=== PATIENT | female | born 1935 | race Native Hawaiian/Other Pacific Islander ===

== ENCOUNTER 2016-10-06 10:01 | Outpatient (CLI) | payer OTHER ==
[2016-10-06 10:32] LABS: POTASSIUM 4.1 mmol/L (3.6-5.2); SODIUM 139 mmol/L (136-145)
== END 2016-10-06 22:59 | disposition home or self-care (01) ==
LOC: LABW 10:01
PROVIDERS: Nurse Practitioner
DX: E11.9 Type 2 diabetes mellitus without complications (principal); E87.6 Hypokalemia
CPT/HCPCS: 36415; 80048; 83036

== ENCOUNTER 2017-01-14 15:12 | Outpatient (CLI) | payer OTHER | END 2017-01-14 15:16 | disposition short-term general hospital (02) | LOC: AMB 15:12 | DX: S01.111A Laceration without foreign body of right eyelid and periocular area, initial encounter (principal); S51.012A Laceration without foreign body of left elbow, initial encounter; S51.011A Laceration without foreign body of right elbow, initial encounter; W01.0XXA Fall on same level from slipping, tripping and stumbling without subsequent striking against object, initial encounter; Y92.098 Other place in other non-institutional residence as the place of occurrence of the external cause | CPT/HCPCS: A0425; A0429 ==

== ENCOUNTER 2017-01-14 15:22 | Emergency (ER) | payer OTHER ==
[~2017-01-14] VITALS: Ht 160 cm; Wt 67.1 kg
[2017-01-14 18:22] VITALS: BP 138/69; TEMP 98
== END 2017-01-14 18:22 | disposition home or self-care (01) ==
LOC: ED 15:22
PROC: 0HQ1XZZ Repair Face Skin, External Approach (ICD-10-PCS; principal; 2017-01-14)
DX: S01.111A Laceration without foreign body of right eyelid and periocular area, initial encounter (principal); W01.0XXA Fall on same level from slipping, tripping and stumbling without subsequent striking against object, initial encounter; Y92.89 Other specified places as the place of occurrence of the external cause
CPT/HCPCS: 90471; 90715; 99283

== ENCOUNTER 2017-01-21 11:17 | Emergency (ER) | payer OTHER ==
[~2017-01-21] VITALS: Ht 160 cm; Wt 67.6 kg
[2017-01-21 13:20] VITALS: BP 148/76; TEMP 98.1
== END 2017-01-21 13:21 | disposition home or self-care (01) ==
LOC: ED 11:17
DX: S20.211A Contusion of right front wall of thorax, initial encounter (principal); Z04.3 Encounter for examination and observation following other accident
CPT/HCPCS: 99282

== ENCOUNTER 2017-01-24 11:27 | Emergency (ER) | payer OTHER ==
[~2017-01-24] VITALS: Ht 157.5 cm; Wt 67.6 kg
[2017-01-24 11:46] VITALS: BP 149/66; TEMP 97
== END 2017-01-24 12:20 | disposition home or self-care (01) ==
LOC: ED 11:27
DX: Z48.02 Encounter for removal of sutures (principal)

== ENCOUNTER 2017-03-03 09:01 | Outpatient (CLI) | payer OTHER | END 2017-03-03 19:06 | disposition home or self-care (01) | LOC: MAMMO 09:01 | DX: Z12.31 Encounter for screening mammogram for malignant neoplasm of breast (principal) | CPT/HCPCS: G0202-TC ==

== ENCOUNTER 2017-05-01 13:39 | Emergency (ER) | payer OTHER ==
[~2017-05-01] VITALS: Ht 160 cm; Wt 64.9 kg
[2017-05-01 14:23] VITALS: BP 158/74; TEMP 97.9
[2017-05-01 14:41] LABS: PLATELET COUNT 289 K/uL (152-353)
== END 2017-05-01 15:26 | disposition home or self-care (01) ==
LOC: ED 13:39
DX: S80.811A Abrasion, right lower leg, initial encounter (principal); E11.9 Type 2 diabetes mellitus without complications; W55.03XA Scratched by cat, initial encounter; Y92.098 Other place in other non-institutional residence as the place of occurrence of the external cause
CPT/HCPCS: 85027; 99282

== ENCOUNTER 2018-11-26 16:46 | Emergency (ER) | payer OTHER ==
[~2018-11-26] VITALS: Ht 157.5 cm; Wt 63.5 kg
[2018-11-26 18:32] VITALS: BP 180/65; TEMP 98.1
== END 2018-11-26 18:35 | disposition home or self-care (01) ==
LOC: ED 16:46
DX: S93.692A Other sprain of left foot, initial encounter (principal)
CPT/HCPCS: 99282

== ENCOUNTER 2018-12-01 11:36 | Emergency (ER) | payer OTHER ==
[~2018-12-01] VITALS: Ht 162.6 cm; Wt 63.5 kg
[2018-12-01 12:08] VITALS: BP 144/98; TEMP 97.7
[2018-12-01] MEDS ORDERED: ESOMEPRAZOLE MA40 M1 PO (12:13)
[2018-12-01] MEDS ORDERED: HYDROCHLOROT12.5 M1 PO (12:13)
[2018-12-01] MEDS ORDERED: METFTAB PO (12:14)
[2018-12-01] MEDS ORDERED: NEXIUM40 M1 PO (12:17)
[2018-12-01] MEDS ORDERED: VITAMIN D1000 UNIT PO (12:19)
[2018-12-01] MEDS ORDERED: HYDR10TA47 PO (12:20)
== END 2018-12-01 12:08 | disposition home or self-care (01) ==
LOC: ED 11:36
DX: S61.411A Laceration without foreign body of right hand, initial encounter (principal); X58.XXXA Exposure to other specified factors, initial encounter; Y92.89 Other specified places as the place of occurrence of the external cause
CPT/HCPCS: 90471; 90715; 99282

== ENCOUNTER 2019-05-04 14:40 | Outpatient (CLI) | payer OTHER ==
[~2019-05-04 14:40] MED LIST: ESOMEPRAZOLE MA40 M1 PO; HYDR10TA47 PO; HYDROCHLOROT12.5 M1 PO; METFTAB PO; NEXIUM40 M1 PO; VITAMIN D1000 UNIT PO
[2019-05-04 15:13] LABS: PLATELET COUNT 346 K/uL (152-353)
[2019-05-04 15:24] LABS: POTASSIUM 4.4 mmol/L (3.6-5.2)
== END 2019-05-04 23:59 ==
LOC: LAB 14:40
PROVIDERS: Nurse Practitioner
DX: E53.8 Deficiency of other specified B group vitamins (principal); E11.9 Type 2 diabetes mellitus without complications; R53.82 Chronic fatigue, unspecified; E78.00 Pure hypercholesterolemia, unspecified; E55.9 Vitamin D deficiency, unspecified
CPT/HCPCS: 80053; 80061; 82043; 82306; 82570; 82607; 83036; 85027

== ENCOUNTER 2019-08-16 16:58 | Outpatient (CLI) | payer OTHER | END 2019-08-16 19:43 | disposition home or self-care (01) | LOC: LAB 16:58 | DX: E11.9 Type 2 diabetes mellitus without complications (principal) | CPT/HCPCS: 83036 ==

== ENCOUNTER 2020-01-25 18:31 | Inpatient (IN) | payer OTHER ==
[~2020-01-25] VITALS: Ht 162.6 cm; Wt 57.2 kg
[2020-01-25 18:31] VITALS: BP 163/79; TEMP 101.1
[2020-01-25 20:10] LABS: POTASSIUM 3.8 mmol/L (3.6-5.2)
[2020-01-25 20:22] LABS: PLATELET COUNT 205 K/uL (152-353)
[2020-01-26] MEDS ORDERED: ASA LOW DOSE81 MG PO (03:05)
[2020-01-26] MEDS ORDERED: ROSE PO (03:08)
[2020-01-26] MEDS ORDERED: VITAMIN C PO (03:08)
[2020-01-26] MEDS ORDERED: CRESTOR20 MG PO (03:11)
[2020-01-26] MEDS ORDERED: CLOP75TA2 PO (03:13)
[2020-01-26] MEDS ORDERED: ZINC220 MG PO (03:14)
[2020-01-26] MEDS ORDERED: HYDR10TA47A PO (03:35)
[2020-01-26 04:38] VITALS: BP 96/46; TEMP 98; Ht 162.6 cm; Wt 57.2 kg
[2020-01-26 08:00] VITALS: BP 95/42; TEMP 97.7
[2020-01-26 16:00] VITALS: BP 103/48; TEMP 98.1
[2020-01-26 18:47] LABS: PARTIAL THROMBOPLASTIN TIME 26.9 SECONDS (24.5-33.6)
[2020-01-26 20:00] VITALS: BP 117/57; TEMP 98.6
[2020-01-27] VITALS: BP 122/63; TEMP 98.8
[2020-01-27 04:00] VITALS: BP 116/61; TEMP 98.2
[2020-01-27 05:39] LABS: POTASSIUM 3.4 mmol/L (3.6-5.2)
[2020-01-27 05:48] LABS: PLATELET COUNT 227 K/uL (152-353)
[2020-01-27 08:00] VITALS: BP 120/69; TEMP 98.9
[2020-01-27 12:00] VITALS: BP 143/65; TEMP 98.1
[2020-01-27 16:00] VITALS: BP 159/86; TEMP 98.3
[2020-01-27 20:36] VITALS: BP 155/66; TEMP 98.1
== END 2020-01-28 04:21 | disposition short-term general hospital (02) | DRG 872 ==
LOC: ED 18:31 → MED/SURG 23:40
PROVIDERS: Internal Medicine; ADMIT Emergency Medicine
DX: A41.89 Other specified sepsis (principal); N39.0 Urinary tract infection, site not specified; K59.09 Other constipation; R50.9 Fever, unspecified; I10 Essential (primary) hypertension; E11.9 Type 2 diabetes mellitus without complications; E78.49 Other hyperlipidemia; K75.89 Other specified inflammatory liver diseases; K57.90 Diverticulosis of intestine, part unspecified, without perforation or abscess without bleeding; R19.09 Other intra-abdominal and pelvic swelling, mass and lump
CPT/HCPCS: 80053; 81000; 83605; 85027; 85610; 85730; 87040; 87077; 87086; 87088; 87186; 87635; 96360; 96375; 99284; A9576; J2405; J2543; J3370; Q9963; U0002

== ENCOUNTER 2020-06-29 15:10 | Outpatient (CLI) | payer OTHER ==
[~2020-06-29 15:10] MED LIST changes: +ASA LOW DOSE81 MG PO; +CLOP75TA2 PO; +CRESTOR20 MG PO; +HYDR10TA47A PO; +ROSE PO; +VITAMIN C PO; +ZINC220 MG PO
[2020-06-29 15:50] LABS: PLATELET COUNT 184 K/uL (152-353)
== END 2020-06-29 22:29 | disposition home or self-care (01) ==
LOC: LABW 15:10
PROVIDERS: Specialist
DX: E61.1 Iron deficiency (principal); D45 Polycythemia vera
CPT/HCPCS: 36415; 85027

== ENCOUNTER 2020-08-02 12:59 | Outpatient (CLI) | payer OTHER ==
[2020-08-02 13:53] LABS: PLATELET COUNT 217 K/uL (152-353)
== END 2020-08-02 19:06 | disposition home or self-care (01) ==
LOC: LABW 12:59
PROVIDERS: ATTEND Specialist
DX: E61.1 Iron deficiency (principal); D45 Polycythemia vera
CPT/HCPCS: 36416; 85027

== ENCOUNTER 2020-08-28 15:44 | Outpatient (CLI) | payer OTHER ==
[2020-08-28 16:13] LABS: PLATELET COUNT 205 K/uL (152-353)
== END 2020-08-28 22:05 | disposition home or self-care (01) ==
LOC: LABW 15:44
PROVIDERS: ATTEND Specialist
DX: E61.1 Iron deficiency (principal); D45 Polycythemia vera
CPT/HCPCS: 36416; 85027

== ENCOUNTER 2020-12-28 08:51 | Outpatient (CLI) | payer OTHER ==
[2020-12-28 10:46] LABS: PLATELET COUNT 185 K/uL (152-353)
[2020-12-28 11:50] LABS: POTASSIUM 4.2 mmol/L (3.6-5.2)
== END 2020-12-28 21:17 | disposition home or self-care (01) ==
LOC: LAB 08:51
PROVIDERS: ATTEND Nurse Practitioner
DX: E11.59 Type 2 diabetes mellitus with other circulatory complications (principal); I10 Essential (primary) hypertension
CPT/HCPCS: 80053; 80061; 83036; 84436; 84443; 84479; 85008; 85027

== ENCOUNTER 2021-02-04 13:02 | Outpatient (CLI) | payer OTHER ==
[2021-02-04 13:09] LABS: PLATELET COUNT 168 K/uL (152-353)
== END 2021-02-04 21:02 | disposition home or self-care (01) ==
LOC: LAB 13:02
PROVIDERS: ATTEND Specialist
DX: E61.1 Iron deficiency (principal); D45 Polycythemia vera
CPT/HCPCS: 85027

== ENCOUNTER 2021-04-01 14:17 | Outpatient (CLI) | payer OTHER ==
[2021-04-01 15:00] LABS: PLATELET COUNT 202 K/uL (152-353)
== END 2021-04-01 19:50 | disposition home or self-care (01) ==
LOC: LAB 14:17
DX: D50.8 Other iron deficiency anemias (principal); D45 Polycythemia vera
CPT/HCPCS: 85027

== ENCOUNTER 2021-07-31 01:39 | Emergency (ER) | payer OTHER ==
[~2021-07-31] VITALS: Ht 160 cm; Wt 54.4 kg
[2021-07-31 02:10] LABS: PLATELET COUNT 202 K/uL (152-353)
[2021-07-31 05:51] VITALS: BP 125/47; TEMP 98.1
== END 2021-07-31 06:21 | disposition home or self-care (01) ==
LOC: ED 01:41
PROVIDERS: Emergency Medicine Emergency Medical Services
DX: S42.031A Displaced fracture of lateral end of right clavicle, initial encounter for closed fracture (principal); S00.03XA Contusion of scalp, initial encounter; S51.011A Laceration without foreign body of right elbow, initial encounter; K59.09 Other constipation; W06.XXXA Fall from bed, initial encounter; Y92.89 Other specified places as the place of occurrence of the external cause
CPT/HCPCS: 36415; 80048; 85027; 96360; 96361; 96374; 96375; 99284; J2270; J2405